=== PATIENT | male | born 1975 | race Caucasian/White ===

== ENCOUNTER 2016-07-29 11:40 | Emergency (ER) | payer OTHER ==
[~2016-07-29] VITALS: Ht 182.9 cm; Wt 72.2 kg
[~2016-07-29 11:40] MED LIST: LISI10TA3 PO; NOVO7030P2 SQ; NOVOLOGP2 SQ
[2016-07-29 11:54] VITALS: BP 123/73; PULSE 107; RESP 20; TEMP 97.9; O2SAT 100
--- NOTE | 2016-07-29 12:02 | PD ---
HPI Chief Complaint: Injury Time Seen by Provider: 11:58 Travel History International Travel<30 days: No Contact w/Intl Traveler<30days: No Traveled to known affect area: No History of Present Illness HPI 40-year-old male here with left great toe pain since he accidentally stubbed his toe yesterday. Notes a small amount of bleeding from the nailbed that has since resolved. Increasing pain with ambulation. Notes ecchymosis, swelling today. Pain is mild to moderate, throbbing. PFSH Past Medical History Arthritis: No Asthma: No Autoimmune Disease: No Anxiety: No Depression: No Heart Rhythm Problems: No Cancer: No Cardiovascular Problems: Yes High Cholesterol: No Chemotherapy: No Chest Pain: No Congestive Heart Failure: No COPD: No Cerebrovascular Accident: No Diabetes: Yes Diminished Hearing: No Endocrine: No Gastrointestinal Disorders: Yes (PANCREATITIS) GERD: Yes Genitourinary: No Headaches: No Hiatal Hernia: No Hypertension: Yes Immune Disorder: No Implanted Vascular Access Dvce: No Kidney Stones: No Musculoskeletal: No Neurologic: No Psychiatric: No Reproductive: Yes Respiratory: Yes Immunizations Current: Yes Migraines: No Pancreatitis: Yes Radiation Therapy: No Renal Failure: No Seizures: No Sickle Cell Disease: No Sleep Apnea: No Thyroid Disease: No Ulcer: No PNEUMOCCOCAL Vaccine (Year): 2 Past Surgical History Abdominal Surgery: No AICD: No Arteriovenous Shunt: No Cardiac Surgery: No Ear Surgery: No Endocrine Surgery: No Eye Surgery: Yes (LEFT LASER SX) Genitourinary Surgery: No Gynecologic Surgery: No Insulin Pump: No Joint Replacement: No Neurologic Surgery: No Oral Surgery: No Pacemaker: No Thoracic Surgery: No Other Surgery: Yes (R HAND ) Social History Alcohol Use: Yes (STATES NO ETOH SINCE 11/28/15) Tobacco Use: Yes (06/12 PPD AND ECIG) Substance Use: No Allergies-Medications (Allergen,Severity, Reaction): Coded Allergies: Sulfa (Verified Allergy, Severe, FLUSHING, 07/29/16) *MDRO Multi-Drug Resistant Organism (Verified Adverse Reaction, Unknown, ) MRSA (buttock) - 03/2005 MRSA PCR Screens NEGATIVE - 01/24/16, 01/26/16 CLEARED PER INFECTION CONTROL Reported Meds & Prescriptions Reported Meds & Active Scripts Active Lisinopril 10 Mg Tab 10 Mg PO DAILY Novolin 70-30 Inj (Insulin Human Isoph/Insulin Regular) 1,000 Unit/10 Ml Vial 25 Units SQ BID dispense 1 mt supply Review of Systems General / Constitutional: No: Fever Cardiovascular: No: Chest Pain or Discomfort Respiratory: No: Shortness of Breath Musculoskeletal: Positive: Arthralgias, Pain Skin: No Rash Neurologic: No: Weakness Physical Exam Narrative GENERAL: Well-appearing male in no acute distress smelling heavily of tobacco SKIN: Warm and dry. HEAD: Normocephalic. CARDIOVASCULAR: Regular rate and rhythm. RESPIRATORY: No accessory muscle use. MUSCULOSKELETAL: Left great toe with ecchymosis at the nailbed and interphalangeal joint, swollen with focal tenderness to palpation. This does not extend to the MTP or into the first metatarsal ray. Flexion and extension of the great toe, foot are intact. Patient ambulatory the lateral aspect of the foot. NEUROLOGICAL: Awake and alert. Normal speech. PSYCHIATRIC: Appropriate mood and affect; insight and judgment normal. Data Data Last Documented VS Vital Signs Date Time Temp Pulse Resp B/P Pulse Ox O2 Delivery O2 Flow Rate FiO2 07/29/16 11:54 97.9 107 20 123/73 100 Orders Toe (Min 2vws) (07/29/16 ) Post Op Boot (Shoe) (07/29/16 ) MDM Medical Decision Making Medical Screen Exam Complete: Yes Emergency Medical Condition: Yes Medical Record Reviewed: Yes Differential Diagnosis 40-year-old male here with left great toe pain after he stubbed it yesterday. Differential includes phalanx fracture, sprain, ecchymosis/contusion. Narrative Course Ice applied. X-ray of the left toe obtained and showed no acute abnormalities. Patient was given postop shoe for comfort and will be discharged home Diagnosis Primary Impression: Contusion of left great toe without damage to nail, initial encounter Referrals: Primary Care Physician as needed Additional Instructions: X-rays today thankfully showed no evidence of fracture. Ice the affected area. 20 minutes at a time 3-4 times daily. Tylenol, ibuprofen as needed for comfort. Hard soled shoe as needed for comfort. Med/Other Pt SpecificInfo: No Change to Meds Disposition: 01 DISCHARGE HOME Condition: Stable Yessica Tabor MD Jul 29, 2016 12:02
--- NOTE | 2016-07-29 12:44 | RADHPO ---
EXAM DATE/TIME: 07/29/2016 12:12 [facility] COMPARISON: No previous studies available for comparison. INDICATIONS : Left great toe pain after tripping over extension cord. MEDICAL HISTORY : None. SURGICAL HISTORY : ENCOUNTER: Initial ACUITY: 2 days PAIN SCORE: 10/10 LOCATION: Left anterior great toe FINDINGS: Examination of the first digit of the left foot demonstrates no evidence of fracture or dislocation. No radiopaque foreign bodies are seen. The soft tissues are intact. CONCLUSION: Unremarkable examination of left first toe. Jayy Rudd Jr., MD on July 29, 2016 at 12:42 Board Certified Radiologist. This report was verified electronically.
[2016-10-04] MEDS ORDERED: CIPR-9 PO (12:05)
[2016-10-04] MEDS ORDERED: LISI10TA3 PO (12:05)
[2016-10-04] MEDS ORDERED: NOVO7030P2 SQ (12:05)
[2016-10-04] MEDS ORDERED: NOVOLOGP2 SQ (12:05)
[2016-12-03] MEDS ORDERED: LISI10TA3 PO (14:58)
[2016-12-04] MEDS ORDERED: LISI10TA3 PO (06:29)
== END 2016-07-29 13:08 | disposition home or self-care (01) ==
LOC: PHEFT 11:40
DX: S90.112A Contusion of left great toe without damage to nail, initial encounter (principal); E11.9 Type 2 diabetes mellitus without complications; I10 Essential (primary) hypertension; W22.8XXA Striking against or struck by other objects, initial encounter; Y93.9 Activity, unspecified; Y92.9 Unspecified place or not applicable
CPT/HCPCS: 73660; 99283; L3260

== ENCOUNTER → 2016-09-25 | Outpatient (CLI) | payer OTHER ==
[~2016-09-25] MED LIST changes: +CIPR-9 PO
[2016-09-25 16:45] LABS: HEMOGLOBIN A1a 1.2 %; HEMOGLOBIN A1b 1.9 %; HEMOGLOBIN Ao 82.4 %; HEMOGLOBIN LA1C 2.7 %; HEMOGLOBIN P3 4.3 %
== END ==
LOC: CLAB 12:42
PROVIDERS: ATTEND Physician Assistant Medical
DX: E10.9 Type 1 diabetes mellitus without complications (principal)
CPT/HCPCS: 36415; 83036

== ENCOUNTER → 2017-01-01 | Outpatient (CLI) | payer OTHER ==
[2017-01-01 17:14] LABS: HEMOGLOBIN A1a 1.3 %; HEMOGLOBIN A1b 1.8 %; HEMOGLOBIN Ao 83.7 %; HEMOGLOBIN LA1C 2.2 %; HEMOGLOBIN P3 3.9 %
== END ==
LOC: CLAB 12:29
PROVIDERS: ATTEND Nurse Practitioner Family
DX: E11.9 Type 2 diabetes mellitus without complications (principal)
CPT/HCPCS: 36415; 83036